=== PATIENT | female | born 1990 | race Caucasian/White ===

== ENCOUNTER 2017-03-30 08:16 | Outpatient (CLI) | payer OTHER ==
[~2017-03-30] VITALS: Ht 160 cm; Wt 114.8 kg
[2017-03-30] VITALS (7 sets, daily range): BP systolic 113–131; BP diastolic 64–82; PULSE 74–92
[~2017-03-30 08:16] MED LIST: NEXIUM 40MG40 MG PO
[2017-03-30 10:51] LABS: CEREBROSPINAL TUBE #4; CSF APPEARANCE CLEAR; CSF COLOR COLORLESS
== END 2017-03-30 11:10 | disposition home or self-care (01) ==
LOC: COL.RAD 08:16
PROVIDERS: Psychiatry & Neurology Neurology
DX: H47.10 Unspecified papilledema (principal)

== ENCOUNTER → 2022-05-15 | Day surgery (SDC) | payer OTHER ==
[~2022-05-15] VITALS: Ht 160 cm; Wt 97.0 kg
[~2022-05-15] MED LIST changes: +NORCO 325 MG-51 TAB PO
[2022-05-15 09:32] VITALS: BP 127/85; PULSE 91; TEMP 98.5
[2022-05-15 12:20] VITALS: BP 117/76; PULSE 89; TEMP 97.6
[2022-05-15 12:35] VITALS: BP 108/75; PULSE 77
[2022-05-15 12:50] VITALS: BP 111/76; PULSE 81
[2022-05-15 13:05] VITALS: BP 118/74; PULSE 68
--- NOTE | 2022-05-15 13:37 | NUR ---
1220: Patient arrived back into bay 4 from PACU. Patient is drowsy but arousable. Vital signs stable on room air. Report received from ABELARDO Azar. Patient requesting to rest at this time. Dressing is clean, dry, and intact. Patient denies nausea and pain. Call light left within reach. 1235: Vital signs stable on room air, alert and awake. Patient requesting applesauce and water. Denies pain or nausea at this time. brought back to room from waiting room. 1250: Vital signs stable on room air, alert and awake. Tolerating food and drink well. Patient states discomfort near incisions. PRN pain medication given per DEC. 1305: Patient up to restroom and able to void successfully. IV to saline lock. Patient got dressed independently in room. Call light left within reach. 1320: Patient meets discharge criteria. IV removed without complications. Went through discharge instructions with patient and . 1330: Escorted to patient entrance via wheelchair. Patient got into personal vehicle and left in the care of her , Gio.
[2022-05-15 13:49] VITALS: BP 117/76; PULSE 84; TEMP 97.6
== END ==
LOC: SDCO 05-05 10:30
DX: K80.10 Calculus of gallbladder with chronic cholecystitis without obstruction (principal); F17.210 Nicotine dependence, cigarettes, uncomplicated
CPT/HCPCS: J0690; J1100; J1885; J2405; J2704; J7120